=== PATIENT | male | born 1975 | race Caucasian/White ===

== ENCOUNTER 2018-05-18 10:09 | Emergency (ER) | payer MEDICARE, MEDICAID ==
[~2018-05-18] VITALS: Ht 180.3 cm; Wt 89.8 kg
--- NOTE | 2018-05-18 10:30 | NUR ---
BIB RA [address] [facility], CALLED 911 AFTER HE WAS TOLD 40 MINUTE WAIT FOR HIS APPOINTMENT,LUNGS CLEAR,95% O2SAT RA PER REPORT. PT AAOX4, VSS. DENIES CP, DIZZINESS, WEAKNESS, N/V/D @ THIS TIME. AWAITING EVAL BY MD & WILL CONT TO MONITOR.
[2018-05-18] MEDS ORDERED: IPRATROPIUM NEB FS 0.5 MG/2.5 ML AMPUL.NEB NEB ONE (11:00)
[2018-05-18] MEDS ORDERED: ALBUTEROL FS 2.5 MG/3 ML VIAL.NEB CONTNEB ONE (11:00)
[2018-05-18] MEDS ORDERED: ALBUTEROL FS 2.5 MG/3 ML VIAL.NEB ONE (11:02)
[2018-05-18] MEDS ORDERED: IPRATROPIUM NEB FS 0.5 MG/2.5 ML AMPUL.NEB ONE (11:02)
--- NOTE | 2018-05-18 11:07 | NUR ---
PT GETTING BREATHING TX, GIVEN BY RT.
[2018-05-18] MEDS ORDERED: predniSONE 20 MG TABLET PO ONE (12:00)
--- NOTE | 2018-05-18 12:20 | NUR ---
Patient discharged to home in stable condition. Written and verbal after care instructions given. Patient verbalizes understanding of instruction.
[2018-05-18 12:21] VITALS: BP 117/78
== END 2018-05-18 12:22 | disposition home or self-care (01) ==
LOC: ER 10:11
DX: J45.901 Unspecified asthma with (acute) exacerbation (principal); R06.02 Shortness of breath; F17.200 Nicotine dependence, unspecified, uncomplicated; Z60.2 Problems related to living alone; Z98.890 Other specified postprocedural states

== ENCOUNTER 2019-07-15 16:00 | Emergency (ER) | payer MEDICARE, OTHER ==
[~2019-07-15] VITALS: Ht 180.3 cm; Wt 89.8 kg
--- NOTE | 2019-07-15 16:05 | NUR ---
CALLED IN THE WAITING ROOM. PT STATES "IM NOT READY YET."
[2019-07-15 16:17] VITALS: BP 117/80
== END 2019-07-15 17:05 | disposition home or self-care (01) ==
LOC: ER 16:13
DX: G47.00 Insomnia, unspecified (principal); M54.5 Low back pain; G89.29 Other chronic pain; M54.2 Cervicalgia; J45.909 Unspecified asthma, uncomplicated; Z98.890 Other specified postprocedural states; Z60.2 Problems related to living alone